=== PATIENT | male | born 1970 | race Caucasian/White ===

== ENCOUNTER 2017-06-23 20:08 | Inpatient (IN) | payer OTHER ==
[~2017-06-23] VITALS: Ht 175.3 cm; Wt 104.3 kg
[~2017-06-23 20:08] MED LIST: AZITHROMYCIN 2250 MG PO; NEXIUM40 MG; PHENERGAN-CODE120 ML PO; VENTOLIN HFA 1818 GM INH
[2017-06-23 20:12] VITALS: BP 136/78
[2017-06-23] MEDS ORDERED: SYNTHROID75 MCG PO (20:17)
[2017-06-23] MEDS ORDERED: PRILOSEC 20 MG20 MG PO (20:17)
[2017-06-23 20:28] LABS: ABSOLUTE BASOPHILS 0.1 thou/uL (0.0-0.2); ABSOLUTE EOSINOPHILS 0.2 thou/uL (0.0-0.7); ABSOLUTE LYMPHOCYTES 1.4 thou/uL (0.8-5.3); ABSOLUTE MONOCYTES 0.8 thou/uL (0.0-1.2); ABSOLUTE NEUTROPHILS 7.8 thou/uL (1.6-8.1); BASOPHILS 1.1 %; EOSINOPHILS 1.9 %; HEMATOCRIT 40.5 % (42.0-52.0); HEMOGLOBIN 13.7 gm/dL (14.0-18.0); LYMPHOCYTES 13.3 %; MCH 27.4 pg (26.0-34.0); MCHC 33.8 g/dL (28.0-37.0); MCV 80.9 fL (80.0-100.0); MONOCYTES 7.9 %; MPV 8.1 fl. (7.2-11.1); NUCLEATED RBCS 0 /100WBC; PLATELET COUNT* 219 thou/uL (150-400); POLYS 75.8 %; RDW-CV 14.8 % (10.5-14.5); WBC 10.2 thou/uL (4.0-11.0)
[2017-06-23 20:41] LABS: CALCIUM 8.2 mg/dL (8.5-10.1); CREATININE 1.4 mg/dL (0.6-1.3); POTASSIUM 3.8 mmol/L (3.5-5.1)
[2017-06-23 20:46] LABS: ALBUMIN 3.7 g/dL (3.4-5.0); TOTAL BILIRUBIN 0.4 mg/dL (<0.1-1.0)
--- NOTE | 2017-06-23 20:54 | NUR ---
IV STARTED AND WHILE
[2017-06-23 20:58] LABS: URINE BILIRUBIN NEGATIVE (Negative); URINE BLOOD NEGATIVE (Negative); URINE CLARITY CLEAR; URINE COLOR YELLOW; URINE GLUCOSE-RANDOM NEGATIVE (Negative); URINE KETONES NEGATIVE (Negative); URINE LEUKOCYTES-REFLEX NEGATIVE (Negative); URINE NITRITE-REFLEX NEGATIVE (Negative); URINE PROTEIN NEGATIVE (Negative); URINE UROBILINOGEN 0.2 E.U./dl (0.2-1.0)
[2017-06-23] MEDS ORDERED: ZOFRAN ODT4 MG PO (21:47)
[2017-06-23] MEDS ORDERED: HYDROCODONE-AP1 EAC6 PO (21:47)
[2017-06-23 22:52] VITALS: BP 120/71
[2017-06-24 05:14] LABS: HEMATOCRIT 39.4 % (42.0-52.0); HEMOGLOBIN 13.3 gm/dL (14.0-18.0); MCH 27.2 pg (26.0-34.0); MCHC 33.8 g/dL (28.0-37.0); MCV 80.6 fL (80.0-100.0); MPV 8.6 fl. (7.2-11.1); RBC 4.89 mil/uL (4.50-6.00); RDW-CV 14.5 % (10.5-14.5)
[2017-06-24 05:36] LABS: ALBUMIN 3.3 g/dL (3.4-5.0); CALCIUM 7.8 mg/dL (8.5-10.1); CREATININE 1.3 mg/dL (0.6-1.3); POTASSIUM 4.2 mmol/L (3.5-5.1); TOTAL BILIRUBIN 0.7 mg/dL (<0.1-1.0); TOTAL PROTEIN 6.1 g/dL (6.4-8.2)
--- NOTE | 2017-06-24 05:59 | NUR ---
PATIENT ARRIVED ON FLOOR FROM ER AT ABOUT 2300 BROUGHT BY CART. PATIENT ADMISSION HISTORY AND ASSESSMENT WAS COMPLETED CHARTED. IV FLUIDS WERE STARTED AT 120 ML/HR. PATIENT WAS GIVEN PAIN MEDS ONCE SINCE ARRIVAL TO THE FLOOR WITH GOOD RELIEF. WILL CONTINUE TO MONITOR.
[2017-06-24 08:00] VITALS: BP 107/70
--- NOTE | 2017-06-24 10:43 | NUR ---
SW met with pt to complete initial assessment, introduce self, and SW role. Pt was inpatient at [facility] from 06/18 to 06/21 after total shoulder surgery. Pt dc home with [facility] and then returned to the hospital yesterday. Pt in agreement and preference for dc to SNF. Pt wants SW to send referrals to [facility] and [facility]. SW called admissions of both facilities and they both may have beds available today. SW faxed referrals to both SNFs. SW to continue to follow to assist with safe dc planning.
[2017-06-24] MEDS ORDERED: CALCIUM 600 +1 EACH PO (12:54)
[2017-06-24 16:01] VITALS: BP 138/77
--- NOTE | 2017-06-24 16:14 | NUR ---
PATIENT LIPASE DECREASED THIS AM, OK FOR CLEAR LIQUIDS. PATIENT TOLERATED CLEARS FOR BREAKFAST AND ORDERS PER DR. ORTIZ TO ADVANCE TO SOFT DIET AT LUNCH IF TOLERATING. IVF INFUSING ORDERED. PRN FENTANYL GIVEN X 1 THIS AM FOR PATIENT, NO FURTHER COMPLAINTS. UP AD STEFAN IN ROOM.
--- NOTE | 2017-06-24 16:57 | NUR ---
SW met with pt to complete initial assessment, introduce self and SW role. Pt lives at home with his and 2 teenage sons. Pt goes by "Bry". Pt does not anticipate any dc needs and did not express any concerns or questions at this time. SW to continue to follow to assist with safe dc planning.
[2017-06-24 22:53] VITALS: BP 128/70
[2017-06-25 04:17] LABS: HEMOGLOBIN 13.4 gm/dL (14.0-18.0); MCH 26.9 pg (26.0-34.0); MCHC 32.8 g/dL (28.0-37.0); MCV 81.9 fL (80.0-100.0); MPV 8.4 fl. (7.2-11.1); RDW-CV 14.3 % (10.5-14.5); WBC 8.3 thou/uL (4.0-11.0)
[2017-06-25 05:01] LABS: ALBUMIN 3.5 g/dL (3.4-5.0); CALCIUM 8.2 mg/dL (8.5-10.1); CREATININE 1.2 mg/dL (0.6-1.3); MAGNESIUM 1.9 mg/dL (1.8-2.4); TOTAL BILIRUBIN 0.8 mg/dL (<0.1-1.0); TOTAL PROTEIN 6.5 g/dL (6.4-8.2)
--- NOTE | 2017-06-25 05:19 | NUR ---
PATIENT SLEPT MOST OF THE NIGHT. IV FLUIDS CONTINUE TO INFUSE ORDERED. PATIENT WAS GIVEN PAIN MEDICINE ONCE THIS SHIFT. PATIENT IS POSSIBLY GOING HOME TODAY. WILL CONTINUE TO MONITOR.
[2017-06-25 09:23] VITALS: BP 113/71
[2017-06-25] MEDS ORDERED: TRAMADOL 50 MG50 MG PO (09:29)
[2017-06-25 10:32] LABS: CHOLESTEROL 187 mg/dL (<200); HDL CHOLESTEROL 31 mg/dL (>40); LDL CHOLESTEROL 121 mg/dL (<100); TRIGLYCERIDE 175 mg/dL (<150); VLDL 35 mg/dL (<40)
[2017-06-25 10:36] LABS: SERUM ASSESSMENT Clear
[2017-06-25 11:14] VITALS: BP 113/71
== END 2017-06-25 13:14 | disposition home or self-care (01) | DRG 439 ==
LOC: M.ERS 20:08 → M.3W 22:15 → M.TBA-ER 22:15 → M.3W 22:58
PROVIDERS: Internal Medicine; Nurse Practitioner Psychiatric/Mental Health; ADMIT Internal Medicine
DX: K85.20 Alcohol induced acute pancreatitis without necrosis or infection (principal); N17.9 Acute kidney failure, unspecified; K21.9 Gastro-esophageal reflux disease without esophagitis; I34.1 Nonrheumatic mitral (valve) prolapse; E03.9 Hypothyroidism, unspecified; Z87.891 Personal history of nicotine dependence; Z79.899 Other long term (current) drug therapy

== ENCOUNTER → 2017-12-09 | Outpatient (CLI) | payer OTHER ==
[~2017-12-09] MED LIST changes: +CALCIUM 600 +1 EACH PO; +HYDROCODONE-AP1 EAC6 PO; +PRILOSEC 20 MG20 MG PO; +SYNTHROID75 MCG PO; +TRAMADOL 50 MG50 MG PO; +ZOFRAN ODT4 MG PO
--- NOTE | 2017-12-11 07:28 | SLEEP ---
[address] [address] SLEEP STUDY REPORT Name: VIC FERNANDES JR Room: [facility]#: [id number] Admission: 12/09/17 Attend Phys: Shelly Fang MD Discharge: Date of : 72 Report #: [id number] THIS REPORT FOR: //name// CC: Shelly Fang MD This study has been reviewed in its entirety by a board certified sleep specialist DATE OF SERVICE: 12/09/2017 ATTENDING PHYSICIAN: Dr. Shelly Fang. The patient is 47 years old who weighs 225 pounds and is 69 inches tall with a BMI of 33.2. The patient's Bruce score is 11. The patient underwent a diagnostic sleep study at [facility]. During the night study, the patient spent 415 minutes in bed and slept for 364 minutes with a sleep efficiency of 87%. Sleep latency was 28.1 minutes with a REM latency of 99.1 minutes. Overall, sleep architecture showed normal stage I and stage II sleep, increased N3 sleep and normal REM sleep. During the night study, the patient had 4 central apneas and 1 obstructive apnea. No mixed apneas were observed. The patient had 13 hypopneas. The patient's apnea-hypopnea index for the entire night was only 3 per hour with a REM index of 8 per hour. The patient's supine AHI was 8.2 per hour. EKG monitoring revealed average heart rate of 67 beats per minute. No sustained arrhythmias were observed. PLMS were seen at an index of 8.6 per hour and 3.8 per hour caused EEG arousals. Nocturnal oximetry study revealed an average oxygen saturation of 94% with a lowest of 87%. Only 0.4 minutes were spent in oxygen saturation less than 90%. Due to low AHI, patient did not meet the split night criteria for CPAP initiation. IMPRESSION: 1. No clinically significant sleep disordered breathing. The patient's AHI for the entire night was only 3 per hour. Mild hypopneas seen during supine and REM sleep. 2. Mild PLMS. This does not need to be treated. 3. No clinically significant nocturnal hypoxia. RECOMMENDATIONS: [place] [address] SLEEP STUDY REPORT Name: VIC FERNANDES JR Room: [facility]#: [id number] Admission: 12/09/17 Attend Phys: Shelly Fang MD Discharge: Date of : 72 Report #: [id number] 1. Patient did not meet the split night criteria for CPAP initiation. 2. Avoid supine sleep. 3. Weight loss is advised. 4. Avoid [employer] depressants. <ELECTRONICALLY SIGNED> By: Zhou Vivar MD 12/11/17 0728 1726 Collin Vivar MD /[email or web address]
== END ==
LOC: M.SLEEPLAB 21:00
DX: G47.61 Periodic limb movement disorder (principal); R06.83 Snoring; R53.83 Other fatigue; R40.0 Somnolence

== ENCOUNTER 2018-08-04 18:00 | Emergency (ER) | payer OTHER ==
[~2018-08-04] VITALS: Ht 175.3 cm; Wt 108.9 kg
[2018-08-04 18:47] LABS: URINE BILIRUBIN NEGATIVE (Negative); URINE BLOOD NEGATIVE (Negative); URINE CLARITY CLEAR; URINE COLOR YELLOW; URINE GLUCOSE-RANDOM NEGATIVE (Negative); URINE KETONES NEGATIVE (Negative); URINE LEUKOCYTES-REFLEX NEGATIVE (Negative); URINE NITRITE-REFLEX NEGATIVE (Negative); URINE PROTEIN NEGATIVE (Negative); URINE SPECIFIC GRAVITY <= 1.005 (1.005-1.030); URINE UROBILINOGEN 0.2 E.U./dl (0.2-1.0)
[2018-08-04 18:50] LABS: ABSOLUTE BASOPHILS 0.1 thou/uL (0.0-0.2); ABSOLUTE EOSINOPHILS 0.2 thou/uL (0.0-0.7); ABSOLUTE LYMPHOCYTES 1.5 thou/uL (0.8-5.3); ABSOLUTE NEUTROPHILS 6.3 thou/uL (1.6-8.1); BASOPHILS 1.3 %; EOSINOPHILS 1.8 %; HEMOGLOBIN 13.6 gm/dL (14.0-18.0); LYMPHOCYTES 16.5 %; MCH 28.3 pg (26.0-34.0); MCV 83.3 fL (80.0-100.0); MPV 7.9 fl. (7.2-11.1); NUCLEATED RBCS 0 /100WBC; PLATELET COUNT* 231 thou/uL (150-400); POLYS 69.4 %; RDW-CV 13.5 % (10.5-14.5)
[2018-08-04 19:00] LABS: CALCIUM 8.1 mg/dL (8.5-10.1); CREATININE 1.2 mg/dL (0.6-1.3); POTASSIUM 3.6 mmol/L (3.5-5.1)
[2018-08-04 19:04] LABS: ALBUMIN 3.8 g/dL (3.4-5.0); TOTAL BILIRUBIN 0.4 mg/dL (<0.1-1.0); TOTAL PROTEIN 7.1 g/dL (6.4-8.2)
[2018-08-04] MEDS ORDERED: FLAGYL500 M1 PO (20:51)
[2018-08-04 21:14] VITALS: BP 145/94
== END 2018-08-04 21:14 | disposition home or self-care (01) ==
LOC: M.ERS 18:00
PROVIDERS: Nurse Practitioner Family
DX: R10.32 Left lower quadrant pain (principal); K21.9 Gastro-esophageal reflux disease without esophagitis; E03.9 Hypothyroidism, unspecified; F17.200 Nicotine dependence, unspecified, uncomplicated

== ENCOUNTER → 2019-04-26 | Outpatient (CLI) | payer OTHER ==
[~2019-04-26] MED LIST changes: +FLAGYL500 M1 PO
== END ==
LOC: M.RAD 16:24
DX: R05 Cough (principal); R07.9 Chest pain, unspecified

== ENCOUNTER → 2020-03-26 | Outpatient (CLI) | payer OTHER | LOC: M.LAB 09:32 | PROVIDERS: ATTEND Orthopaedic Surgery | DX: Z01.812 Encounter for preprocedural laboratory examination (principal); Z20.822 Contact with and (suspected) exposure to COVID-19 ==

== ENCOUNTER → 2021-04-03 | Outpatient (CLI) | payer OTHER | LOC: M.LAB 11:01 | PROVIDERS: ATTEND Orthopaedic Surgery | DX: Z01.812 Encounter for preprocedural laboratory examination (principal); Z20.822 Contact with and (suspected) exposure to COVID-19 ==